=== PATIENT | male | born 1995 | race Caucasian/White ===

== ENCOUNTER 2024-07-22 17:09 | Emergency (ER) | payer OTHER ==
[~2024-07-22] VITALS: Ht 182.9 cm; Wt 83.9 kg
[2024-07-22] MEDS ORDERED: DIPHTH,PERTUSS(ACELL),TET VAC 0.5 ML SYRINGE IM ONE (18:39)
[2024-07-22] MEDS ORDERED: LIDOCAINE HCL 1% 10ML VIAL PERCUT ONE (18:45)
[2024-07-22] MEDS ORDERED: TETANUS & DIPHTHERIA TOX,ADULT 0.5 ML VIAL IM ONE (18:45)
[2024-07-22] MEDS ORDERED: CIPRO500 MG PO (18:50)
== END 2024-07-22 18:55 ==
LOC: ER 17:10
DX: S51.812A Laceration without foreign body of left forearm, initial encounter (principal); W19.XXXA Unspecified fall, initial encounter; Y93.89 Activity, other specified; Y92.89 Other specified places as the place of occurrence of the external cause; Y99.8 Other external cause status; Z88.0 Allergy status to penicillin
CPT/HCPCS: 12001; 90471; 90714; 96372; 99282; J1670; J3490